=== PATIENT | female | born 2000 | race Asian ===

== ENCOUNTER 2018-09-21 15:15 | Emergency (ER) | payer OTHER, SELFPAY ==
[2018-09-21 15:18] VITALS: BP 129/92; PULSE 79; RESP 18; TEMP 37.1; O2SAT 97; BMI 22.8
--- NOTE | 2018-09-21 16:27 | ED.DEP ---
ED Disposition - Plan for ED Patient: Instructions: ED Pharyngitis Viral Referrals: Douglas Wadsworth MD [NON-STAFF] -
--- NOTE | 2018-09-21 16:35 | ED.VISSUMM ---
- ER Visit Summary Date of Service: 09/21/18 Chief Complaint: Sore throat History of Present Illness: The patient is a 18 F presenting with sore throat. She states this started on Wednesday. She noticed swelling on the left side of her neck today. She has no difficulty swallowing. No change in voice. She denies fever. She denies other complaints. Physical Examination: Vitals are stable. Patient is afebrile. Alert no acute distress. Nontoxic appearing HEENT exam mild pharyngeal erythema with no exudate. Uvula is midline. Mild left cervical lymphadenopathy. Neck is supple. No meningismus Lungs are clear and equal bilaterally. Heart is regular rate and rhythm. Abdomen is soft nontender nondistended. Extremities are unremarkable. Skin is warm and dry. No rash Remainder of exam is unremarkable. Emergency Department Course and Treatment: Rapid strep was negative. She was given Decadron. She is advised to follow-up with Dr. Wadsworth business analysis professional for no doc. Advised return to ED if worsening complaints. Disposition: Discharge home Impression: Pharyngitis This note was generated with [employer] dictation software. It may contain incorrect words, spelling, and punctuation that were not noted in review of the chart prior to signing ED Disposition - Plan for ED Patient: Instructions: ED Pharyngitis Viral Referrals: Douglas Wadsworth MD [NON-STAFF] -
--- NOTE | 2018-09-21 16:38 | ED.DCSUM_ITS ---
- ER Visit Summary Date of Service: 09/21/18 Chief Complaint: Sore throat History of Present Illness: The patient is a 18 F presenting with sore throat. She states this started on Wednesday. She noticed swelling on the left side of her neck today. She has no difficulty swallowing. No change in voice. She denies fever. She denies other complaints. Physical Examination: Vitals are stable. Patient is afebrile. Alert no acute distress. Nontoxic appearing HEENT exam mild pharyngeal erythema with no exudate. Uvula is midline. Mild left cervical lymphadenopathy. Neck is supple. No meningismus Lungs are clear and equal bilaterally. Heart is regular rate and rhythm. Abdomen is soft nontender nondistended. Extremities are unremarkable. Skin is warm and dry. No rash Remainder of exam is unremarkable. Emergency Department Course and Treatment: Rapid strep was negative. She was given Decadron. She is advised to follow-up with Dr. Wadsworth adult probation officer for no doc. Advised return to ED if worsening complaints. Disposition: Discharge home Impression: Pharyngitis This note was generated with [employer] dictation software. It may contain incorrect words, spelling, and punctuation that were not noted in review of the chart prior to signing ED Disposition - Plan for ED Patient: Instructions: ED Pharyngitis Viral Referrals: Douglas Wadsworth MD [NON-STAFF] -
== END 2018-09-21 17:06 | disposition home or self-care (01) ==
LOC: ED 16:22
PROVIDERS: Emergency Provider Emergency Medicine
DX: J02.9 Acute pharyngitis, unspecified (principal); Z72.0 Tobacco use
CPT/HCPCS: 87880; 99283